=== PATIENT | female | born 1990 | race African-American/Black ===

== ENCOUNTER 2017-03-21 00:13 | Emergency (ER) | payer BC ==
[~2017-03-21] VITALS: Ht 160 cm; Wt 61.2 kg
[~2017-03-21 00:13] MED LIST: ADVAIR 100-501 EACH INH; AMOXICILLIN875 MG PO; APAP/CODEINE ELI5 M1 OR; BENADRYL25 MG PO; BENTYL 10 MG CA10 M1 PO; BUSPIRONE HCL10 MG PO; CITRATE OF MAG296 ML PO; DOXYCYCLINE 10100 MG PO; DULERA 100 MCG/13 GM; FLAGYL500 MG PO; FLEXERIL PO; FLONASE16 GM INH; HYOSCYAMINE0.375 M1 PO; IBUPROFEN 600600 M1 PO; IBUPROFEN 800800 MG PO; IMITREX 25 MG T25 M1 PO; KEFLEX500 MG PO; LINZESS145 MCG PO; LOPERAMIDE 2 MG2 M1 PO; MACROBID 100 M100 M1 PO; MAGOX 400400 MG PO; MIRALAX17 GM PO; NAPROSYN500 MG PO; NORCO 5-325 TA1 EACH PO; NORTRIPTYLINE H25 M3 PO; PEG-3350 SOLU4000 ML PO; PEPCID20 MG PO; PERCOCET 7.5-31 EACH PO; PHENERGAN 25 MG25 M1 PO; PREDNISONE 20 M20 MG PO; PREDNISONE50 MG PO; VENTOLIN HFA INH8 GM IH; VITAMIN D3400 UNIT PO; ZANTAC 150MG T150 MG PO; ZOFRAN 4 MG ORAL4 M1 DISSOLVE; ZOFRAN ODT4 MG PO; ZPAK PO; [UNRECOGNIZED DRUG - OTHER]
[2017-03-21] MEDS ORDERED: DULERA 200 MCG/13 GM INH (00:29)
[2017-03-21] MEDS ORDERED: VENTOLIN HFA 1818 GM INH (00:29)
[2017-03-21] MEDS ORDERED: LINZESS290 MCG (00:31)
[2017-03-21] MEDS ORDERED: DUONEB 2.5-0.5 M3 ML (00:32)
[2017-03-21] MEDS ORDERED: LEVALBUTER1.25 MG/0. (00:32)
[2017-03-21] MEDS ORDERED: PREDNISONE 20 M20 MG PO (00:34)
[2017-03-21 01:25] VITALS: BP 110/60
== END 2017-03-21 01:25 | disposition home or self-care (01) ==
LOC: ER 00:13
DX: J45.901 Unspecified asthma with (acute) exacerbation (principal); G43.909 Migraine, unspecified, not intractable, without status migrainosus; Z86.73 Personal history of transient ischemic attack (TIA), and cerebral infarction without residual deficits; Z88.8 Allergy status to other drugs, medicaments and biological substances